=== PATIENT | female | born 1995 | race Two or more races ===

== ENCOUNTER 2021-02-16 06:54 | Emergency (ER) | payer OTHER ==
[~2021-02-16] VITALS: Ht 157.5 cm; Wt 149.7 kg
--- NOTE | 2021-02-16 07:00 | NUR ---
BIBS FOR C/O L SIDED CP 8/10, NON RADIATING SINCE AM, AND FATIGUE. ON ROOM AIR, BREATHING EVENLY AND UNLABORED. CONNECTED TO THE MONITOR AND PULSE OX. KEPT COMFORTABLE, WILL CONTINUE TO MONITOR ACCORDINGLY.
[2021-02-16] MEDS ORDERED: MECLIZINE HCL 12.5 MG TABLET PO ONE (07:30)
[2021-02-16] MEDS ORDERED: IV NS 0.9% 1,000 ML BAG IV ONE (07:30)
[2021-02-16] MEDS ORDERED: MECLIZINE HCL 25 MG TABLET ONE (07:49)
[2021-02-16 08:10] VITALS: BP 115/64
--- NOTE | 2021-02-16 08:11 | NUR ---
Patient does not wish to proceed with medical care recommended by Dr. Miller. Patient given information related to possible complications, up to and including , which could occur as a result of leaving the hospital at this time. Patient verbalizes understanding of risks involved due to leaving against medical advice. Patient has signed AMA form.
== END 2021-02-16 08:10 | disposition left against medical advice (07) ==
LOC: ER 06:58
DX: R07.89 Other chest pain (principal); R00.2 Palpitations; K21.9 Gastro-esophageal reflux disease without esophagitis; F32.9 Major depressive disorder, single episode, unspecified; F41.9 Anxiety disorder, unspecified; E66.01 Morbid (severe) obesity due to excess calories; Z68.44 Body mass index [BMI] 60.0-69.9, adult
CPT/HCPCS: 93005; 99283; J7030; J8597

== ENCOUNTER 2024-06-29 03:42 | Emergency (ER) | payer OTHER ==
[~2024-06-29] VITALS: Ht 160 cm; Wt 143.8 kg
[2024-06-29 06:18] LABS: PREGNANCY TEST URINE QUAL NEGATIVE (NEGATIVE)
[2024-06-29] MEDS ORDERED: diphenhydrAMINE HCL 50 MG/ML VIAL ONE (06:34)
[2024-06-29] MEDS ORDERED: METOCLOPRAMIDE HCL 10 MG/2 ML VIAL ONE (06:35)
[2024-06-29] MEDS ORDERED: KETOROLAC TROMETHAMINE 15 MG/ML VIAL ONE (06:35)
[2024-06-29] MEDS: KETOROLAC TROMETHAMINE 15 MG/ML VIAL IV ONE (07:01)
[2024-06-29] MEDS: diphenhydrAMINE HCL 50 MG/ML VIAL IV ONE (07:01)
[2024-06-29] MEDS: METOCLOPRAMIDE HCL 10 MG/2 ML VIAL IV ONE (07:01)
[2024-06-29] MEDS: IV NS 0.9% 1,000 ML BAG IV ONE (07:01)
[2024-06-29] MEDS ORDERED: SUMA50TA PO (08:11)
[2024-06-29 08:41] VITALS: BP 146/51; TEMP 98.6; O2SAT 99
== END 2024-06-29 08:41 | disposition home or self-care (01) ==
LOC: ER 03:45
DX: G43.909 Migraine, unspecified, not intractable, without status migrainosus (principal); K21.9 Gastro-esophageal reflux disease without esophagitis; R10.2 Pelvic and perineal pain; Z88.1 Allergy status to other antibiotic agents
CPT/HCPCS: 99284; 96374; 96375; 96361; 84703; J1200; J2765; J7030; J1885